=== PATIENT | male | born 1995 | race Two or more races ===

== ENCOUNTER 2024-09-01 16:25 | Emergency (ER) | payer MEDICAID, SELFPAY ==
[2024-09-01 16:26] VITALS: BP 98/60; PULSE 67; RESP 16; TEMP 36.8; O2SAT 99
[2024-09-01 16:27] VITALS: BMI 30.1
--- NOTE | 2024-09-01 16:44 | PD.EDMEDCL ---
ED Medical Clearance RME/HPI General Chief complaint: Medical Clearance Stated complaint: MEDICAL CLEARANCE Time Seen by Provider: 09/01/24 16:38 Arrival date/time: 09/01/24 16:25 This is a 29-year-old male that comes to the emergency room with complaints of needing medical clearance for intermediate. Initially was out in his bed tachycardia. Patient no longer tachycardia vital signs stable. Patient has no complaints. Patient denies fever, nausea, vomiting, diarrhea. Patient denies any other symptoms. Patient admits to smoking weed. Related Information Allergies Allergy/AdvReac Type Severity Reaction Status Date / Time No Known Allergies Allergy Verified 09/01/24 16:34 Review of Systems Review of Systems Systems Reviewed: All systems reviewed, normal except as documented Past Medical History Social History SMOKING STATUS: Never smoker ED Exam General General appearance: Present alert and in no apparent distress Head Head exam: Present atraumatic Eye Eye exam: Present normal appearance, PERRL and EOMI ENT ENT exam: Present normal exam, normal oropharynx and mucous membranes moist Neck Neck exam: Present normal inspection, full ROM and trachea midline Chest Chest inspection: Present normal inspection and symmetric chest wall rise Respiratory Respiratory exam: Present normal lung sounds bilaterally Cardiovascular Cardiovascular exam: Present regular rate and normal rhythm Abdominal Exam Abdominal exam: Present soft Extremities Exam Extremities exam: Present normal inspection and full ROM Back Exam Back exam: Present normal inspection and full ROM Neurological Exam Neurological exam: Present alert, oriented X3 and CN II-XII intact Psychiatric Psychiatric exam: Present normal affect and normal mood Skin Skin exam: Present warm, dry, intact and normal color Course Quality Measures none Vital Signs Vital signs: Vital Signs Temperature 98.2 F 09/01/24 16:26 Pulse Rate 67 09/01/24 16:26 Respiratory Rate 16 09/01/24 16:26 Blood Pressure 98/60 09/01/24 16:26 Pulse Oximetry (%) 99 09/01/24 16:26 Oxygen Delivery Method Room Air 09/01/24 16:26 Medical Clearance MDM Narrative MDM Narrative:: Vital signs stable. Patient okay to go to intermediate at this time. Patient data External records reviewed:: [facility] previous records Clinical information provided by:: patient Social determinants that could affect healthcare access:: none Patient has the following chronic illnesses:: see hpoi How is presenting disease/condition affected by chronic disease/condition?: no chronic disease Evaluation data The following diagnostics were reviewed and interpreted by me:: other (specify) (none) Lab and/or radiology exams considered but not ordered:: none Interpretation Summary: n/a Medications / Prescriptions Medications or Prescriptions considered but not ordered:: none Medication administrations:: n/a Consultations Consultation(s) initiated? (list below): No Diagnosis Medical Clearance Differential Diagnosis: other (medical clearance for intermediate, tachycardia ) Most likely diagnosis given after review of the tests above:: medical clearance for intermediate Admission Indicated Admission indicated?: not indicated Admission Request Was there a request for admission?: No Disposition Plan Disposition Plan: Discharge Discharge Attestation Discharge Attestation: The patient and all family members were given an opportunity to ask questions and understood the discharge instructions. Discharge instructions specifically effects, indications for sooner follow up or return to the emergency department, and the expected course of current diagnosis. Patient condition: Stable Discharge Plan Plan Patient Disposition: Assisted/Court/Law Patient condition on transfer: Stable Problem List Clinical Impression: Medical clearance for incarceration, Marijuana use Patient/Caregiver Discharge Instructions Discharge Activity: activity as tolerated Education Materials: Understanding Marijuana Abuse Additional Instructions: Follow up with primary provider in 1-2 days. Come back to ED if symptoms change or worsen Print Language: Yemeni Stand Alone Forms: Leona Award Info., Patient Portal Info Letter ASCENCION/CLEMENT Supervising Physician ASCENCION/CLEMENT Supervising Physician: jean claude
[2024-09-01 16:57] VITALS: BP 109/72; PULSE 64; RESP 18; TEMP 36.7; O2SAT 98
== END 2024-09-01 16:57 ==
PROVIDERS: Emergency Provider Emergency Medicine
DX: Z02.89 Encounter for other administrative examinations (principal); F12.90 Cannabis use, unspecified, uncomplicated
CPT/HCPCS: 99281